=== PATIENT | male | born 1990 | race Caucasian/White ===

== ENCOUNTER 2020-05-02 11:02 | Emergency (ER) | payer OTHER ==
[2020-05-02] MEDS ORDERED: BACTRIM DS TAB1 EACH PO (13:18)
== END 2020-05-02 13:50 | disposition home or self-care (01) ==
LOC: ER1 11:02
DX: L02.211 Cutaneous abscess of abdominal wall (principal)
CPT/HCPCS: 10060; 87070; 87205; 99283

== ENCOUNTER 2020-08-25 00:15 | Emergency (ER) | payer OTHER ==
[~2020-08-25 00:15] MED LIST: BACTRIM DS TAB1 EACH PO
[2020-08-25 00:43] LABS: HEMOGLOBIN 14.7 gm/dl (14.0-17.5); RED BLOOD COUNT 4.77 M/UL (4.20-5.50); WHITE BLOOD COUNT 11.2 K/UL (4.5-11.0)
[2020-08-25 01:00] LABS: BUN/CREATININE RATIO 10 (0-10)
== END 2020-08-25 01:05 | disposition short-term general hospital (02) ==
LOC: ER1 00:15
PROVIDERS: Physician Assistant
DX: S45.112A Laceration of brachial artery, left side, initial encounter (principal); F17.290 Nicotine dependence, other tobacco product, uncomplicated; X58.XXXA Exposure to other specified factors, initial encounter
CPT/HCPCS: 73070; 80053; 85025; 85610; 85730; 96374; 96375; 99284; G0480; J0690; J2270; J2405; J3010